=== PATIENT | female | born 1955 | race Caucasian/White ===

== ENCOUNTER → 2016-12-26 | Outpatient (CLI) | payer OTHER ==
[~2016-12-26] MED LIST: HYDROCHLOROTHIA25 MG PO; LISINOPRIL20 MG PO; LORTAB 7.5-3251 EACH PO; PERCOCET 5-3251 EACH PO; PRILOSEC OTC20 MG PO; TENORMIN 50 MG50 MG PO; XARELTO10 MG PO
[2016-12-26 11:30] LABS: HEMOGLOBIN 14.4 gm/dl (12.3-15.3); RED BLOOD COUNT 4.69 M/UL (4.00-5.10); WHITE BLOOD COUNT 10.3 K/UL (4.5-11.0)
[2016-12-26 11:53] LABS: BUN/CREATININE RATIO 20 (0-10)
== END ==
LOC: OPSV2 10:16 → EDSTATUS 10:30 → OPSV2 10:30
PROVIDERS: Orthopaedic Surgery
DX: Z01.812 Encounter for preprocedural laboratory examination (principal); M17.12 Unilateral primary osteoarthritis, left knee; I10 Essential (primary) hypertension
CPT/HCPCS: 36415; 80048; 81001; 85027; 87081; 93005

== ENCOUNTER → 2017-01-08 | Outpatient (CLI) | payer OTHER ==
[2017-01-08 11:40] LABS: BUN/CREATININE RATIO 23 (0-10)
== END ==
LOC: LAB 09:30
PROVIDERS: Orthopaedic Surgery
DX: Z01.812 Encounter for preprocedural laboratory examination (principal); M17.12 Unilateral primary osteoarthritis, left knee; I10 Essential (primary) hypertension
CPT/HCPCS: 36415; 80048; 86850; 86900; 86901

== ENCOUNTER 2017-01-09 09:45 | Inpatient (IN) | payer OTHER ==
[~2017-01-09] VITALS: Ht 170.2 cm; Wt 113.4 kg
[2017-01-09] MEDS ORDERED: TENORMIN 50 MG50 MG PO (11:44)
[2017-01-09] MEDS ORDERED: HYDROCHLOROTHIA25 MG PO (11:44)
[2017-01-09] MEDS ORDERED: LORTAB 7.5-3251 EACH PO (11:45)
[2017-01-09] MEDS ORDERED: PRILOSEC OTC20 MG PO (11:46)
[2017-01-10 07:04] LABS: HEMOGLOBIN 12.3 gm/dl (12.3-15.3); RED BLOOD COUNT 4.05 M/UL (4.00-5.10); WHITE BLOOD COUNT 9.8 K/UL (4.5-11.0)
[2017-01-10 07:10] LABS: BUN/CREATININE RATIO 20 (0-10)
[2017-01-11 05:28] LABS: HEMOGLOBIN 11.2 gm/dl (12.3-15.3); RED BLOOD COUNT 3.69 M/UL (4.00-5.10); WHITE BLOOD COUNT 7.8 K/UL (4.5-11.0)
[2017-01-11 05:44] LABS: BUN/CREATININE RATIO 27 (0-10)
[2017-01-11] MEDS ORDERED: XARELTO10 MG PO (15:12)
[2017-01-11] MEDS ORDERED: PERCOCET 5-3251 EACH PO (15:13)
[2017-01-11] MEDS ORDERED: LISINOPRIL20 MG PO (15:20)
== END 2017-01-11 16:30 | disposition home health service (06) | DRG 470 ==
LOC: ZOBSOF 10:47 → M/S 19:51
PROVIDERS: ADMIT Orthopaedic Surgery
PROC: 3E0T3CZ (ICD-10-PCS; 2017-01-09)
PROC: 0SRD0J9 Replacement of Left Knee Joint with Synthetic Substitute, Cemented, Open Approach (ICD-10-PCS; principal; 2017-01-09 14:45)
DX: M17.12 Unilateral primary osteoarthritis, left knee (principal); M25.762 Osteophyte, left knee; M21.162 Varus deformity, not elsewhere classified, left knee; I10 Essential (primary) hypertension; E87.6 Hypokalemia; M25.462 Effusion, left knee; Z79.1 Long term (current) use of non-steroidal anti-inflammatories (NSAID); Z79.891 Long term (current) use of opiate analgesic; Z79.899 Other long term (current) drug therapy; Z83.3 Family history of diabetes mellitus
CPT/HCPCS: 36415; 73560; 80048; 85027; 97116; 97530; C1776; J0690; J1885; J2250; J2270; J2405; J2795; J3010; J7120